=== PATIENT | female | born 1955 | race Caucasian/White ===

== ENCOUNTER 2016-11-21 00:41 | Observation (INO) | payer OTHER ==
[~2016-11-21] VITALS: Ht 167.6 cm; Wt 61.2 kg
--- NOTE | 2016-11-21 00:54 | ED GI/GU/ABDOMINAL COMPLAINT ---
History of Present Illness General Chief Complaint: Abdominal Pain/Flank Pain Stated Complaint: "LOWER ABD PAIN, ?KIDNEY STONE,+N+V-D" Source: patient Exam Limitations: no limitations Vital Signs & Intake/Output Vital Signs & Intake/Output Vital Signs Date Time Temp Pulse Resp B/P B/P Pulse O2 O2 Flow FiO2 Mean Ox Delivery Rate 11/21 0440 97.8 78 20 107/61 97 Room Air 11/21 0210 97.6 83 18 140/76 98 Room Air 11/21 0109 Room Air 11/21 0049 97.5 91 20 137/78 100 Room Air Allergies Coded Allergies: cephalexin (Intermediate, HIVES 11/21/16) Reconcile Medications Amlodipine Besylate/Benazepril (Amlodipine-Benazepril 5-10 MG) 5 MG-10 MG CAPSULE 1 CAP PO DAILY HTN (Reported) Escitalopram Oxalate 10 MG TABLET 1 TAB PO DAILY MOOD (Reported) Triage Note: PT TO TRIAGE FROM HOME C/O SHARP MID ABD PAIN +N/+V/-D THAT BEGAN TONIGHT AND WOKE HER OUT OF SLEEP. DENIES URINARY S/SX BUT HAS HX OF KIDNEY STONES. Triage Nurses Notes Reviewed? yes ? N Is pt currently ? No Onset: Abrupt Duration: hour(s): Timing: recent history Quality/Severity: burning, sharpness Location: epigastric, generalized abdomen Radiation: no radiation Activities at Onset: rest Prior Abdominal Problems: similar symptoms Modifying Factors: Worsens With: vomiting. Associated Symptoms: abdominal pain, nausea/vomiting HPI: 61-year-old woman history of high blood pressure presents with midepigastric central and right sided abdominal pain. She states that it began at approximately 10 PM and was very sharp in nature. She felt nauseous and vomited several times. She is otherwise well without dysuria diarrhea chest pain shortness of breath fevers or dizziness. She is otherwise well and has no other concerns. Past History Travel History Traveled to [place] past 21 day No Medical History Any Pertinent Medical History? see below for history Cardiovascular: hypertension Psychiatric: depression Influenza Vaccine: 02/28/13 Surgical History Surgical History: none Psychosocial History What is your primary language Hebrew Family History Hx Contributory? No Review of Systems Review of Systems Constitutional: Reports: no symptoms. EENTM: Reports: no symptoms. Respiratory: Reports: no symptoms. Cardiovascular: Reports: no symptoms. GI: Reports: no symptoms. Genitourinary: Reports: no symptoms. Musculoskeletal: Reports: no symptoms. Skin: Reports: no symptoms. Neurological/Psychological: Reports: no symptoms. Hematologic/Endocrine: Reports: no symptoms. Immunologic/Allergic: Reports: no symptoms. All Other Systems: Reviewed and Negative Physical Exam Physical Exam General Appearance: well developed/nourished, no apparent distress Head: atraumatic, normal appearance Eyes: Bilateral: normal appearance. Ears, Nose, Throat, Mouth: hearing grossly normal Neck: normal inspection, supple, full range of motion, normal alignment Respiratory: normal breath sounds, chest non-tender, no respiratory distress, quiet respiration, lungs clear Cardiovascular: regular rate/rhythm Gastrointestinal: soft, midepigastric tenderness to palpation. No Deshpande sign. No rebound no guarding. Mild right lower quadrant tenderness. Back: normal inspection Extremities: normal range of motion Neurologic/Psych: no motor/sensory deficits, awake, alert, oriented x 3 Skin: intact, normal color, warm/dry Core Measures ACS in differential dx? No Severe Sepsis Present: No Septic Shock Present: No Progress Differential Diagnosis: appendicitis, cholecystitis, diverticulitis, gastritis, kidney stone Plan of Care: Orders Procedure Date/time Status Place in observation 11/21 0514 Active URINALYSIS 11/21 004 Complete TROPONIN LEVEL 11/21 004 Complete LIPASE 11/21 004 Complete HEPATIC FUNCTION PANEL 11/21 004 Complete CBC WITHOUT DIFFERENTIAL 11/21 44 Complete BASIC METABOLIC PANEL 11/21 004 Complete AMYLASE 11/21 0045 Complete EKG 11/21 0045 Active Laboratory Tests 11/21/16 0130: Urinalysis MOD H, Urine Color STRAW, Urine Clarity CLEAR, Urine pH 8.0, Ur Specific [place] 1.015, Urine Protein NEG, Urine Ketones TRACE H, Urine Nitrite NEG, Urine Bilirubin NEG, Urine Urobilinogen 0.2, Ur Leukocyte Esterase NEG, Ur Microscopic SEDIMENT EXAMINED, Urine RBC 3-5, Urine WBC 1-3 H, Urine Hemoglobin TRACE-INTACT, Urine Glucose NEG 11/21/16 0100: Anion Gap 12, Estimated GFR > 60, BUN/Creatinine Ratio 27.1 H, Glucose 131 H, Calcium 9.7, Total Bilirubin 0.7, Direct Bilirubin 0.2, AST 22, ALT 30, Alkaline Phosphatase 74, Troponin I < 0.01, Total Protein 7.8, Albumin 4.9, Amylase 58, Lipase 89, CBC w Diff MAN DIFF ORDERED, RBC 4.67, MCV 89.9, MCH 30.5, RDW 12.8, MPV 9.7, Gran % 83.8 H, Lymphocytes % 11.2 L, Monocytes % 3.3, Eosinophils % 1.4, Basophils % 0.3, Absolute Granulocytes 14.7 H, Absolute Lymphocytes 2.0, Absolute Monocytes 0.6, Absolute Eosinophils 0.2, Absolute Basophils 0, Platelet Estimate ADEQUATE, Normocytic RBCs VERIFIED, Normochromic RBCs VERIFIED, PUBS MCHC 33.9 Diagnostic Imaging: Viewed by Me: CT Scan. Discussed w/RAD: CT Scan. Radiology Impression: ABD/PELVIC CT... SUSPICIOUS FOR SMALL BOWEL OBSTRUCTION. Initial ED EKG: normal axis, normal intervals, normal p-waves, normal QRS complex, normal sinus rhythm Comments: PATIENT: DAMON TRINH PRESENT AGE: 61 PATIENT ACCOUNT NO: [id number] : 53 LOCATION: [facility] ORDERING PHYSICIAN: NIKHIL ARROYO MD SERVICE DATE: 11/21/16 EXAM TYPE: CAT - CT ABD & PELVIS W/O IV CONTRAS EXAMINATION: CT ABDOMEN AND PELVIS WITHOUT CONTRAST CLINICAL INFORMATION: Mid epigastric and right flank pain COMPARISON: 07/12/2013 TECHNIQUE: Multidetector volumetric imaging was performed from the superior aspect of the liver through the pubic symphysis. Sagittal and coronal reformatted images were obtained on the technologist's workstation. DLP: 290.47 mGy-cm FINDINGS: LUNG BASES: There is subsegmental atelectasis in the right lower lobe. LIVER, GALLBLADDER, AND BILIARY TREE: The liver is normal in size, shape, and attenuation. There is a subcentimeter hypoattenuating lesion in segment 8 of the liver, too small to characterize. No biliary ductal dilatation is present. The gallbladder is unremarkable with no evidence of radiopaque gallstones, gallbladder wall thickening, or obvious pericholecystic inflammatory changes. PANCREAS: Unremarkable. SPLEEN: Unremarkable. ADRENAL GLANDS: There is a 1.3 cm low-density right adrenal nodule which has the density of a lipid rich adenoma. KIDNEYS AND URETERS: There is a 2.6 cm right upper pole renal cyst. There are multiple scattered bilateral renal calculi measuring up to approximately 6 mm. No hydronephrosis or ureteral calculi bilaterally. BLADDER: Unremarkable. GASTROINTESTINAL TRACT: There are multiple loops of mildly prominent fluid-filled small bowel in the abdomen, with a transition to collapsed bowel seen in the anterior pelvis (axial image 67/96, coronal image 30) which is suspicious for a small bowel obstruction. Distal small bowel loops appear collapsed. There is prominent submucosal fat in the proximal ascending colon, suggesting sequelae of prior inflammation. The colon otherwise appears unremarkable. The appendix is unremarkable. ABDOMINAL WALL: No significant hernia is appreciated. LYMPH NODES: Normal. VASCULAR: Scattered atherosclerotic calcifications are present. PELVIC VISCERA: Unremarkable. OSSEOUS STRUCTURES: There is facet arthropathy of the lower lumbar spine. IMPRESSION: 1. Multiple mildly prominent fluid-filled loops of small bowel in the abdomen, with transition to collapsed bowel in the anterior pelvis. Overall pattern is suspicious for a small bowel obstruction. 2. Numerous scattered bilateral renal calculi, without hydronephrosis. DICTATED BY: YOCASTA HAMMER MD DATE/TIME DICTATED:11/21/16318 SUPPLY REQUIREMENTS OFFICER:FAZAL DATE/TIME TRANSCRIBED:11/21/16318 CONFIDENTIAL, DO NOT COPY WITHOUT APPROPRIATE AUTHORIZATION. <Electronically signed in Other Vendor System> SIGNED BY: YOCASTA HAMMER MD 11/21/16 0333 Departure Departure Disposition: HOME OR SELF CARE Condition: Stable Clinical Impression Primary Impression: Abdominal pain Secondary Impressions: Small bowel obstruction Referrals: NGA MADDEN,SHAWANDA Ramirez (PCP/Family) Departure Forms: Customer Survey General Discharge Information Observation Note Spoke With: JOB MADDEN,BRITT N. Physician Advisor Notified: NICOLE AMBRIZ DO Place Patient In: Non-ED OBS Care Area Rationale for Observation: My rational for observation is as follows . pt with small bowel obstruction, benign labs, felling better after iv fluids...pt will beneifit from supportive medications and bowel rest.
--- NOTE | 2016-11-21 01:05 | NUR ---
MEDICATED WITH TORADOL AND ZOFRAN PER EMAR. 1ST LITER NS INFUSING AT THIS TIME.
[2016-11-21 01:08] LABS: ABSOLUTE BASOPHIL COUNT 0 /CUMM (0.0-0.2); ABSOLUTE EOSINOPHIL COUNT 0.2 /CUMM (0.0-0.7); ABSOLUTE GRANULOCYTE CT 14.7 /CUMM (1.4-6.5); ABSOLUTE MONOCYTE COUNT 0.6 /CUMM (0.10-0.60); BASOPHIL % 0.3 % (0.0-2.0); EOSINOPHIL % 1.4 % (0-5); MEAN CORPUSCULAR HGB 30.5 PG (27.0-31.0); MEAN CORPUSCULAR HGB CONC 33.9 G/DL (33.0-37.0); MEAN CORPUSCULAR VOLUME 89.9 FL (81.0-99.0); MEAN PLATELET VOLUME 9.7 FL (7.4-10.4); PLATELET COUNT 256 /CUMM (130-400); RBC DISTRIBUTION WIDTH 12.8 % (11.5-14.5); RED BLOOD CELL CT 4.67 /CUMM (4.20-5.40); WHITE BLOOD CELL COUNT 17.5 /CUMM (4.8-10.8)
[2016-11-21 01:19] LABS: GRANULOCYTE % 83.8 % (42.2-75.2)
--- NOTE | 2016-11-21 01:20 | NUR ---
PT NOW RESTING MORE COMFORTABLY ON STRETCHER. AWARE OF NEED FOR URINE SAMPLE. AWAITING RESULTS OF LABS.
--- NOTE | 2016-11-21 01:24 | NUR ---
MD ARROYO AT BEDSIDE TO IVAN AT THIS TIME
--- NOTE | 2016-11-21 01:41 | NUR ---
PT MEDICATED WITH PEPCID AND GI COCKTAIL PER EMAR. TOLERATED WELL. URINE TRIO SENT BY MARIAM CANO.
--- NOTE | 2016-11-21 02:02 | NUR ---
TO CAT SCAN VIA STRETCHER AT THIS TIME
--- NOTE | 2016-11-21 02:10 | NUR ---
PT BACK FROM CAT SCAN
--- NOTE | 2016-11-21 03:33 | CT SCAN REPORT ---
EXAMINATION: CT ABDOMEN AND PELVIS WITHOUT CONTRAST CLINICAL INFORMATION: Mid epigastric and right flank pain COMPARISON: 07/12/2013 TECHNIQUE: Multidetector volumetric imaging was performed from the superior aspect of the liver through the pubic symphysis. Sagittal and coronal reformatted images were obtained on the technologist's workstation. DLP: 290.47 mGy-cm FINDINGS: LUNG BASES: There is subsegmental atelectasis in the right lower lobe. LIVER, GALLBLADDER, AND BILIARY TREE: The liver is normal in size, shape, and attenuation. There is a subcentimeter hypoattenuating lesion in segment 8 of the liver, too small to characterize. No biliary ductal dilatation is present. The gallbladder is unremarkable with no evidence of radiopaque gallstones, gallbladder wall thickening, or obvious pericholecystic inflammatory changes. PANCREAS: Unremarkable. SPLEEN: Unremarkable. ADRENAL GLANDS: There is a 1.3 cm low-density right adrenal nodule which has the density of a lipid rich adenoma. KIDNEYS AND URETERS: There is a 2.6 cm right upper pole renal cyst. There are multiple scattered bilateral renal calculi measuring up to approximately 6 mm. No hydronephrosis or ureteral calculi bilaterally. BLADDER: Unremarkable. GASTROINTESTINAL TRACT: There are multiple loops of mildly prominent fluid-filled small bowel in the abdomen, with a transition to collapsed bowel seen in the anterior pelvis (axial image 67/96, coronal image 30) which is suspicious for a small bowel obstruction. Distal small bowel loops appear collapsed. There is prominent submucosal fat in the proximal ascending colon, suggesting sequelae of prior inflammation. The colon otherwise appears unremarkable. The appendix is unremarkable. ABDOMINAL WALL: No significant hernia is appreciated. LYMPH NODES: Normal. VASCULAR: Scattered atherosclerotic calcifications are present. PELVIC VISCERA: Unremarkable. OSSEOUS STRUCTURES: There is facet arthropathy of the lower lumbar spine. IMPRESSION: 1. Multiple mildly prominent fluid-filled loops of small bowel in the abdomen, with transition to collapsed bowel in the anterior pelvis. Overall pattern is suspicious for a small bowel obstruction. 2. Numerous scattered bilateral renal calculi, without hydronephrosis.
--- NOTE | 2016-11-21 03:40 | NUR ---
AT BEDSIDE TO REEVAL AND UPDATE PT
[2016-11-21] MEDS ORDERED: AMLODIPINE-BEN1 EAC3 PO (03:45)
[2016-11-21] MEDS ORDERED: ESCITALOPRAM OX10 MG PO (03:45)
--- NOTE | 2016-11-21 04:46 | NUR ---
SURGICAL PA HERE TO EVAL PT
--- NOTE | 2016-11-21 05:22 | Admission Core Measures ---
Admission Lab Results I reviewed the following labs: Laboratory Tests 11/21 11/21 0130 0100 Chemistry Sodium (137 - 145 mmol/L) 143 Potassium (3.5 - 5.1 mmol/L) 3.6 Chloride (98 - 107 mmol/L) 102 Carbon Dioxide (22 - 30 mmol/L) 28 Anion Gap (5 - 16) 12 BUN (7 - 17 mg/dL) 19 H Creatinine (0.5 - 1.0 mg/dL) 0.7 Estimated GFR (>60 ml/min) > 60 BUN/Creatinine Ratio (7 - 25 %) 27.1 H Glucose (65 - 99 mg/dL) 131 H Calcium (8.4 - 10.2 mg/dL) 9.7 Total Bilirubin (0.2 - 1.3 mg/dL) 0.7 Direct Bilirubin (< 0.4 mg/dL) 0.2 AST (14 - 36 U/L) 22 ALT (9 - 52 U/L) 30 Alkaline Phosphatase (<127 U/L) 74 Troponin I (< 0.11 ng/ml) < 0.01 Total Protein (6.3 - 8.2 g/dL) 7.8 Albumin (3.5 - 5.0 g/dL) 4.9 Amylase (30 - 110 U/L) 58 Lipase (23 - 300 U/L) 89 Hematology CBC w Diff MAN DIFF ORDERED WBC (4.8 - 10.8 /CUMM) 17.5 H RBC (4.20 - 5.40 /CUMM) 4.67 Hgb (12.0 - 16.0 G/DL) 14.3 Hct (37 - 47 %) 42.0 MCV (81.0 - 99.0 FL) 89.9 MCH (27.0 - 31.0 PG) 30.5 RDW (11.5 - 14.5 %) 12.8 Plt Count (130 - 400 /CUMM) 256 MPV (7.4 - 10.4 FL) 9.7 Gran % (42.2 - 75.2 %) 83.8 H Lymphocytes % (20.5 - 51.1 %) 11.2 L Monocytes % (1.7 - 9.3 %) 3.3 Eosinophils % (0 - 5 %) 1.4 Basophils % (0.0 - 2.0 %) 0.3 Absolute Granulocytes (1.4 - 6.5 /CUMM) 14.7 H Absolute Lymphocytes (1.2 - 3.4 /CUMM) 2.0 Absolute Monocytes (0.10 - 0.60 /CUMM) 0.6 Absolute Eosinophils (0.0 - 0.7 /CUMM) 0.2 Absolute Basophils (0.0 - 0.2 /CUMM) 0 Platelet Estimate (ADEQUATE) ADEQUATE Normocytic RBCs VERIFIED Normochromic RBCs VERIFIED PUBS MCHC (33.0 - 37.0 G/DL) 33.9 Urines Urinalysis MOD H Urine Color (YEL,AMB,STR) STRAW Urine Clarity (CLEAR) CLEAR Urine pH (5.0 - 8.0) 8.0 Ur Specific [place] (1.001 - 1.035) 1.015 Urine Protein (NEG,<30 MG/DL) NEG Urine Ketones (NEG) TRACE H Urine Nitrite (NEG) NEG Urine Bilirubin (NEG) NEG Urine Urobilinogen (0.1 - 1.0 EU/dl) 0.2 Ur Leukocyte Esterase (NEG) NEG Ur Microscopic SEDIMENT EXAMINED Urine RBC (0 - 5 /HPF) 3-5 Urine WBC (0 - 2 /HPF) 1-3 H Urine Hemoglobin (NEG) TRACE-INTACT Urine Glucose (N MG/DL) NEG Admission Meds I reviewed the following Meds: Current Medications Sig/Mulu Start time Last Medication Dose Stop Time Status Admin Acetaminophen 1,000 MG Q6P PRN 11/21 0530 UNVr (Ofirmev) N/A 1 UNIT (No Carrier) Amlodipine Besylate 5 MG DAILY 11/21 1000 UNVr (Norvasc) Escitalopram Oxalate 10 MG DAILY 11/21 1000 UNVr (Lexapro) Famotidine 20 MG BID 11/21 1000 UNVr (Pepcid) Morphine Sulfate 2 MG Q4P PRN 11/21 0530 UNVr (Morphine) Ondansetron HCl 4 MG Q6P PRN 11/21 0530 UNVr (Zofran) Potassium Chloride 20 MEQ Q8H 11/21 0530 UNVr (KCl 20MEQ in D5W 1/ 2NS 1000ML) Dextrose/Sodium 1,000 ML Chloride (D5W-1/2 Normal Saline 1000ML) Acute Coronary Syndrome Inclusion Criteria ACS Diagnosis No Inpatient Core Measures LDL Reminder: If No, please order W/I first 24hr of stay Congestive Heart Failure Inclusion Criteria CHF Diagnosis No Cerebrovascular accident Inclusion Criteria CVA/TIA Diagnosis No Inpatient Core Measures Bedside Swallow Eval Reminder: If BSE failed, place ST order Antithrombotic Reminder: Order Antithrombotic Medication by end of day 2 Antithrombotic Reminder: Document Reason Antithrombotic Not ordered by end of day 2 AFIB/Flutter Reminder: If Present, add to problem list AFIB/Flutter Reminder: Order Anticoag Medication for pts with AFIB/Flutter Atherosclerosis Reminder: If Present, add to problem list LDL Reminder: If No, please order W/I first 24hr of stay PT Order Reminder: If No, please order Venous thromboembolism Inpatient Core Measures VTE Risk Factors: Acute medical illness, Age > 40 No [facility] VTE prophylaxis d/t No contraindications No VTE Pharm Prophylaxis d/t VTE low risk Inclusion Criteria - Per Current guidelines, there needs to be overlap - treatment for the first 5 days of Warfarin therapy. - Parenteral Anticoagulation (IV or SC) needs to be - given along with Warfarin therapy. VTE Diagnosis No VTE Type NONE VTE Confirmed by (Test) NONE Problem List As ranked by this Provider includes Assessment & Plan 1. Abdominal pain 2. Small bowel obstruction HOME MEDS Home Med List Amlodipine Besylate/Benazepril (Amlodipine-Benazepril 5-10 MG) 5 MG-10 MG CAPSULE 1 CAP PO DAILY HTN (Reported) Escitalopram Oxalate 10 MG TABLET 1 TAB PO DAILY MOOD (Reported)
--- NOTE | 2016-11-21 05:32 | Event Note ---
See Addendum Event Note Event Note: Pt is a 61 yo F with a hx of htn, depression, and no previous abdominal surgeries, who presented to the ED last night with c/o periumbilical and epigastric abdominal pain, extending into the RUQ. She states that she ate pizza , meatball sub, and peanuts over at a friend's house and came home around 9pm feeling a little uncomfortable. She had a BM around that time, which was normal in caliber. The pain became progressively worse and would come and go frequently. Onset of pain was followed by nausea and several episodes of emesis, prompting visit to the ED. Pt describes the pain as being similar to when she had kidney stone, "but in a different area." She has otherwise never had pain like this before. Workup in the ED revealed leukocytosis and CT evidence of distended loops of bowel followed by collapsed bowel, which was suspicious for possible sbo. At this time, pt's symptoms have resolved. There is no more pain or nausea. She feels thirsty, but doesn't have an appetite. No flatus or BM since onset of symptoms. Abdominal exam: Soft, non distended. Nontender, except for mild tenderness with very deep palpation of the RUQ. Negative Deshpande's sign. Hypoactive BS are heard. Multiple abdominal striae are appreciated, but no surgical scars. No hernias or masses appreciated. Plan: I spoke with Dr. Che. Pt's pain mimics biliary colic, but she has no evidence of gallstones on CT and there is questionable sbo. She has never had abdominal surgery and is clinically improving. But since she has not passed gas and has no appetite, we will admit for observation, bowel rest, and hydration. Full H&P to follow when seen by Dr. Taveras. Consider repeat MV x-ray of the abdomen or abdominal US for gallbladder workup if she does not improve 100%. I spoke with the patient and her , who are in agreement. I anticipate she will continue to improve.
--- NOTE | 2016-11-21 05:35 | NUR ---
IV FLUIDS RUNNING (KCL 20MEQ IN D5W 1/2NS) AT 125 MLS/HR PER EMAR PT DENIES ANY PAIN OR NAUSEA AT THIS TIME AWAITING OBS ADMISSION
--- NOTE | 2016-11-21 06:12 | NUR ---
PT'S RM ASSIGNMENT 209 BED 2
[2016-11-21 07:16] VITALS: BP 120/72
--- NOTE | 2016-11-21 13:26 | Patient Discharge Instructions ---
Discharge Instructions General Discharge Information You were seen/treated for: abdominal pain / nausea / vomiting, likely gastroenteritis rule out small bowel obstruction You had these procedures: bowel rest Watch for these problems: fever>101.3, increased pain, recurrent nausea/vomiting Diet Continue normal diet: No Recommended Diet: Regular Activity Full Activity/No Limits: Yes Activity Self Limited: Yes Acute Coronary Syndrome Inclusion Criteria At DC or during hospital stay patient has or had the following: ACS DIAGNOSIS No Discharge Core Measures Meds if any: Prescribed or Continued at Discharge Meds if any: NOT Prescribed or Continued at Discharge Congestive Heart Failure Inclusion Criteria At DC or during hospital stay patient has or had the following: CHF DIAGNOSIS No Discharge Core Measures Meds if any: Prescribed or Continued at Discharge Meds if any: NOT Prescribed or Continued at Discharge Cerebrovascular accident Inclusion Criteria At DC or during hospital stay patient has or had the following: CVA/TIA Diagnosis No Discharge Core Measures Meds if any: Prescribed or Continued at Discharge Meds if any: NOT Prescribed or Continued at Discharge Venous thromboembolism Inclusion Criteria VTE Diagnosis No VTE Type NONE VTE Confirmed by (Test) NONE Discharge Core Measures - Per Current guidelines, there needs to be overlap - treatment for the first 5 days of Warfarin therapy. - If discharged on Warfarin prior to 5 days of - overlap therapy, the patient will need to be - assessed for post discharge needs including - *Post discharge parental anticoagulation - *Warfarin and/or parental anticoagulation education - *Follow up date to check INR post discharge At least 5 days overlap therapy as Inpatient No Meds if any: Prescribed or Continued at Discharge Note: Overlap Therapy is Warfarin and Anticoagulant Meds if any: NOT Prescribed or Continued at Discharge
[2016-11-21 15:04] VITALS: BP 140/80
--- NOTE | 2016-11-21 15:06 | NUR ---
NURSING NOTE: PATIENT LEFT FLOOR VIA STRETCHER WITH DISTRIBUTION FOR XRAY. A/OX3, STEADY GAIT DENIES PAIN AT THIS TIME. NO ACUTE DISTRESS NOTED. WILL AWAIT RETURN.
--- NOTE | 2016-11-21 15:24 | NUR ---
NURSIGN NOTE: PATIENT RETURNED TO FLOOR. NO ACUTE CHANGES NOTED. REPORT GIVENT TO ON COMING RN.
--- NOTE | 2016-11-21 15:44 | RADIOLOGY REPORT ---
EXAMINATION: XR ABDOMEN CLINICAL INDICATION: Resolved abdominal pain, nausea and vomiting. Evaluate for a bowel obstruction. COMPARISON: Multiple priors, most recent CT abdomen/pelvis done earlier the same day. TECHNIQUE: Upright and supine AP views of the abdomen were obtained. FINDINGS: Nonobstructive bowel gas pattern with air and stool throughout the colon. No intra-abdominal free air. No abnormal soft tissue calcification. Degenerative changes within the lower lumbar spine and symphysis pubis. IMPRESSION: Nonobstructive bowel gas pattern.
--- NOTE | 2016-11-21 16:59 | History & Physical Pre-Op ---
General Information and HPI Exam Limitations: no limitations History of Present Illness: CC: abdominal pain HPI: 61-year-old nondiabetic nonsmoker came to the ER last night with severe abdominal pain she's not had prior abdominal surgery she hasn't had pain like this before she indicates that it was across the middle lower abdomen both sides didn't radiate it was constant at first and then dissipated once she came to the emergency room the reason she came in was because of the associated vomiting multiple times. She describes the severity similar to that when she had kidney stones just a different location. 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 Before the pain started she had a bowel movement, none since but overnight since being admitted she has passed gas a few times. She does not normally move her bowels every day. Otherwise no changes bowel habits, weight or appetite. I've reviewed the [facility]. No history of GERD, PUD, bleeding problems, heart disease or issues with anesthesia. Family history reviewed reviewed there is a family history of breast cancer Allergies/Medications Allergies: Coded Allergies: cephalexin (Intermediate, HIVES 11/21/16) Home Med list Amlodipine Besylate/Benazepril (Amlodipine-Benazepril 5-10 MG) 5 MG-10 MG CAPSULE 1 CAP PO DAILY HTN (Reported) Escitalopram Oxalate 10 MG TABLET 1 TAB PO DAILY MOOD (Reported) Past History Medical History Neurological: NONE EENT: NONE Cardiovascular: hypertension Respiratory: NONE Gastrointestinal: NONE Hepatic: NONE Renal: nephrolithiasis Musculoskeletal: NONE Psychiatric: depression Endocrine: NONE Blood Disorders: NONE Cancer(s): NONE 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 History of MRSA: No History of VRE: No History of CDIFF: No Isolation History: Standard Influenza Vaccine: 02/28/13 Surgical History Pertinent Surgical History: none Past Family/Social History Psychosocial History Smoking Status: Never Smoked ETOH Use: denies use Review of Systems Review of Systems: Constitutional: No fever, sweats or weight loss ENMT: No sore throat Cardiovascular: No chest pain, palpitations or leg swelling Respiratory: No shortness of breath, cough, or sputum or dyspnea on exertion GI: No GERD or bleeding per rectum : No dysuria or hematuria Musculoskeletal: No new muscle weakness, bone or joint pain Skin / Breast: No jaundice, rashes or itching Psychiatric: No history of drug or alcohol abuse no depression or anxiety Hematologic / lymphatic system: No problems with excessive bleeding, bruising, or blood clots Exam & Diagnostic Data Last 24 Hrs of Vital Signs/I&O I reviewed Vital Signs Date Time Temp Pulse Resp B/P B/P Pulse O2 O2 Flow FiO2 Mean Ox Delivery Rate 11/21 1504 98.2 89 20 140/80 96 Room Air 11/21 0716 98.2 67 20 120/72 97 11/21 0440 97.8 78 20 107/61 97 Room Air 11/21 0210 97.6 83 18 140/76 98 Room Air 11/21 0109 Room Air 11/21 0049 97.5 91 20 137/78 100 Room Air I reviewed Intake & Output 11/21 1600 11/21 0800 11/21 0000 Intake Total 875 1000 Output Total Balance 875 1000 Intake, IV 875 1000 Patient 135 lb Weight Weight Reported by Patient Measurement Method Physical Exam: Constitutional: pleasant, no acute distress, conversant Eyes: sclera anicteric ENMT: ears and nose atraumatic, moist mucous membranes, good dentition, no lip lesions Neck: Supple, trachea is midline, no cervical or supraclavicular adenopathy and no palpable thyromegaly Cardiovascular: S1, S2, no murmurs, no peripheral edema Respiratory: clear to auscultation with normal respiratory effort and no intercostal retractions GI: abdomen soft, nontender, nondistended, no palpable hepatosplenomegaly Extremities / lymphatics: symmetrically warm, free range of motion no peripheral edema, no cervical, supraclavicular, axillary, or inguinal adenopathy Musculoskeletal: Did not evaluate gait and station, no digital cyanosis, good muscle strength and tone no atrophy, motor grossly 5 out of 5 throughout Skin: no jaundice, no rashes warm, nondiaphoretic, no areas of erythema or induration Psychiatric: mood and affect are appropriate and alert and oriented to person place and time Last 24 Hrs of Labs/Boo: I reviewed Laboratory Tests 11/21/16 0130: Urinalysis MOD H, Urine Color STRAW, Urine Clarity CLEAR, Urine pH 8.0, Ur Specific [place] 1.015, Urine Protein NEG, Urine Ketones TRACE H, Urine Nitrite NEG, Urine Bilirubin NEG, Urine Urobilinogen 0.2, Ur Leukocyte Esterase NEG, Ur Microscopic SEDIMENT EXAMINED, Urine RBC 3-5, Urine WBC 1-3 H, Urine Hemoglobin TRACE-INTACT, Urine Glucose NEG 11/21/16 0100: Anion Gap 12, Estimated GFR > 60, BUN/Creatinine Ratio 27.1 H, Glucose 131 H, Calcium 9.7, Total Bilirubin 0.7, Direct Bilirubin 0.2, AST 22, ALT 30, Alkaline Phosphatase 74, Troponin I < 0.01, Total Protein 7.8, Albumin 4.9, Amylase 58, Lipase 89, CBC w Diff MAN DIFF ORDERED, RBC 4.67, MCV 89.9, MCH 30.5, RDW 12.8, MPV 9.7, Gran % 83.8 H, Lymphocytes % 11.2 L, Monocytes % 3.3, Eosinophils % 1.4, Basophils % 0.3, Absolute Granulocytes 14.7 H, Absolute Lymphocytes 2.0, Absolute Monocytes 0.6, Absolute Eosinophils 0.2, Absolute Basophils 0, Platelet Estimate ADEQUATE, Normocytic RBCs VERIFIED, Normochromic RBCs VERIFIED, PUBS MCHC 33.9 Assessment/Plan Assessment/Plan: Studies: I reviewed the CT scan on PACS myself and also compared it to the recent KUB on the initial film there are a few dilated loops of small bowel the follow-up film shows a more diffuse pattern with more gas in the colon. Impression is small bowel obstruction presumably from an unusual meal which seems to be resolving already. Often a large portion of nuts is the culprit. I explained to her that maybe was a recent change in her physical routine plus the medial that caused this and compared it to other causes not likely in her such as postop adhesions or possibly a tumor in which case usually don't improve so quickly but even so she is to watch for recurrent symptoms. At this point we can give her some oral intake and discharge her home even without a bowel movement because her exam is improved as has the imaging and she is passing gas and no longer nauseous. Sometimes patients with this scenario though do not improve and even need an NG tube so I cautioned her to be careful advancing diet on her own gradually. As Ranked By This Provider Problem List: 1. Small bowel obstruction
== END 2016-11-21 16:40 ==
LOC: ERH 00:41 → ERHI 05:14 → ENRESERV 06:09 → 2NB 06:23 → ENPENDDIS 16:15 → 2NB 16:40
PROVIDERS: Pediatrics; ADMIT Surgery
DX: K56.60 Unspecified intestinal obstruction (principal); I10 Essential (primary) hypertension; F32.9 Major depressive disorder, single episode, unspecified; D72.829 Elevated white blood cell count, unspecified
CPT/HCPCS: 6040; 74020; 74176; 81001; 93005; 93010; 96361; 96374; 96375; 96376; G0378; J0131; J1885; J2405; J7042

== ENCOUNTER 2017-09-03 07:04 | Emergency (ER) | payer OTHER ==
[~2017-09-03] VITALS: Ht 160 cm; Wt 59.0 kg
[~2017-09-03 07:04] MED LIST: AMLODIPINE-BEN1 EAC3 PO; ESCITALOPRAM OX10 MG PO
--- NOTE | 2017-09-03 07:56 | ED GI/GU/ABDOMINAL COMPLAINT ---
History of Present Illness General Chief Complaint: Abdominal Pain/Flank Pain Stated Complaint: ABDOMINAL PAIN,KIDNEY STONES Source: patient Exam Limitations: no limitations Vital Signs & Intake/Output Vital Signs & Intake/Output Vital Signs Date Time Temp Pulse Resp B/P B/P Pulse O2 O2 Flow FiO2 Mean Ox Delivery Rate 09/03 0744 98 Room Air 09/04 711 97.3 84 20 136/82 94 Room Air Allergies Coded Allergies: cephalexin (Intermediate, HIVES 11/21/16) Reconcile Medications Amlodipine Besylate/Benazepril (Amlodipine-Benazepril 5-10 MG) 5 MG-10 MG CAPSULE 1 CAP PO DAILY HTN (Reported) Escitalopram Oxalate 10 MG TABLET 1 TAB PO DAILY MOOD (Reported) Triage Note: PT TO ED S/P SUDDEN ONSET OF R SIDED ABD PAIN WRAPPING TO R BACK. HX KIDNEY STONES IN PAST. 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 8/10 PAIN. DENIES HEMATURIA. AWAKE/ALERT WITH EASY WOB. DECLINED PAIN MEDS Triage Nurses Notes Reviewed? yes ? n Is pt currently ? No HPI: Patient presents for evaluation of right flank pain she suspects is due to a kidney stone. Patient states that she has had multiple kidney stones in the past along with lithotripsy treatments. She states initially she felt a pressure feeling "like glass" in the suprapubic region during urination on Wednesday. That seemed to resolve but then this morning at about 5:30 she had an abrupt onset of a right flank pain and subsequent vomiting. This pain is a constant 7/10 pain that fluctuates in intensity. Nothing seems to make it better although the patient has not tried any haby-sub-fmhwrrt pain medications. She denies any associated fever or cold symptoms. Past History Travel History Traveled to [place] past 21 day No Medical History Any Pertinent Medical History? 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 No Review of Systems Review of Systems Constitutional: Reports: no symptoms. EENTM: Reports: no symptoms. Respiratory: Reports: no symptoms. Cardiovascular: Reports: no symptoms. GI: Reports: no symptoms. Genitourinary: Reports: see HPI. Musculoskeletal: Reports: no symptoms. Skin: Reports: no symptoms. Neurological/Psychological: Reports: no symptoms. Hematologic/Endocrine: Reports: no symptoms. Immunologic/Allergic: Reports: no symptoms. All Other Systems: Reviewed and Negative Physical Exam Physical Exam Gastrointestinal: see below Comments: Gen.: Well-nourished, well-developed, no acute respiratory distress. Patient appears comfortable and moves easily on the stretcher. Head: Normocephalic, atraumatic. Eyes: Normal inspection bilaterally Ears: Normal inspection bilaterally Nose: Normal inspection Throat/mouth : Moist mucosa Neck: Supple, full range of motion, no goiter Heart: Regular rate and rhythm, no murmurs rubs or gallops Lungs: Clear to auscultation bilaterally with normal air entry Chest: Nontender Back: Normal range of motion, mild tenderness over the right flank Abdomen: Soft, mild tenderness over the right side of the abdomen without rebound or guarding, nondistended, normal bowel sounds Extremities: Normal range of motion grossly, equal radial pulses, no cyanosis clubbing or edema Neurologic: Cranial nerves grossly intact, speech is clear Skin: warm and dry, no rashes in the area of pain Psychiatric: Calm, cooperative, no apparent delusions or hallucinations Core Measures ACS in differential dx? No Sepsis Present: No Sepsis Focused Exam Completed? No Progress Differential Diagnosis: renal colic, pyelonephritis, UTI, appendicitis, diverticulitis Plan of Care: Orders Procedure Date/time Status LIPASE 09/03 0756 Complete COMPREHENSIVE METABOLIC PANEL 09/03 0756 Complete CBC WITHOUT DIFFERENTIAL 09/03 0756 Complete URINALYSIS 09/03 0727 Complete Laboratory Tests 09/03/17 0808: Anion Gap 13, Estimated GFR > 60, BUN/Creatinine Ratio 18.6, Glucose 108 H, Calcium 9.8, Total Bilirubin 1.1, AST 16, ALT 23, Alkaline Phosphatase 59, Total Protein 7.7, Albumin 4.3, Globulin 3.4, Albumin/Globulin Ratio 1.3, Lipase 58, CBC w Diff MAN DIFF ORDERED, RBC 4.55, MCV 90.4, MCH 30.6, MCHC 33.8, RDW 13.6, MPV 9.6, Gran % 84.3 H, Lymphocytes % 10.8 L, Monocytes % 3.5, Eosinophils % 1.0, Basophils % 0.4, Absolute Granulocytes 8.2 H, Absolute Lymphocytes 1.1 L, Absolute Monocytes 0.3, Absolute Eosinophils 0.1, Absolute Basophils 0, Platelet Estimate ADEQUATE, Normocytic RBCs VERIFIED, Normochromic RBCs VERIFIED 09/03/17 0738: Urinalysis LIGHT H, Urine Color YEL, Urine Clarity HAZY H, Urine pH 6.0, Ur Specific [place] >= 1.030, Urine Protein 30 H, Urine Ketones NEG, Urine Nitrite NEG, Urine Bilirubin NEG, Urine Urobilinogen 0.2, Ur Leukocyte Esterase NEG, Ur Microscopic SEDIMENT EXAMINED, Urine RBC >75 H, Urine WBC 3-5 H, Ur Epithelial Cells FEW, Urine Bacteria FEW H, Urine Mucus FEW, Urine Hemoglobin LARGE H, Urine Glucose NEG Diagnostic Imaging: Discussed w/RAD: CT Scan. Radiology Impression: PATIENT: DAMON TRINH PRESENT AGE: 62 PATIENT ACCOUNT NO: [id number] : 53 LOCATION: [facility] ORDERING PHYSICIAN: Edin Boggs MD SERVICE DATE: 09/03/17 EXAM TYPE: CAT - CT ABD & PELVIS W/O IV CONTRAS EXAMINATION: CT ABDOMEN AND PELVIS WITHOUT CONTRAST CLINICAL INFORMATION: Right flank pain COMPARISON: 11/21/2016 TECHNIQUE : Multidetector volumetric imaging was performed from the superior aspect of the liver through the pubic symphysis. Sagittal and coronal reformatted images were obtained on the technologist's workstation. DLP: 261.92 mGy-cm FINDINGS: LUNG BASES: The visualized lung bases are unremarkable. LIVER, GALLBLADDER, AND BILIARY TREE: The liver is normal in size, shape, and attenuation. There is a redemonstrated hyperattenuating subcentimeter hepatic lesion near the middle hepatic vein, too small to characterize. No biliary ductal dilatation is present. The gallbladder is unremarkable with no evidence of radiopaque gallstones, gallbladder wall thickening, or obvious pericholecystic inflammatory changes. PANCREAS: Unremarkable. SPLEEN: Unremarkable. ADRENAL GLANDS: There is a redemonstrated right adrenal adenoma measuring approximately 1.5 cm. The left adrenal gland appears unremarkable. KIDNEYS AND URETERS: There is a proximal right ureteral calculus measuring 6 mm with moderate hydronephrosis. There are multiple scattered calculi throughout both kidneys measuring up to approximately 5 mm. No left-sided hydronephrosis or ureteral calculus. There is a redemonstrated right upper pole renal cyst. BLADDER: Unremarkable. GASTROINTESTINAL TRACT: Assessment for wall thickening in some segments of the colon is limited due to luminal collapse, though no significant pericolonic stranding is seen to strongly suggest a colitis. No evidence of bowel obstruction. The appendix is unremarkable. No free fluid or free air is seen. ABDOMINAL WALL: No significant hernia is appreciated. LYMPH NODES: Normal. VASCULAR: Scattered atherosclerotic calcifications are present. PELVIC VISCERA: Unremarkable. OSSEOUS STRUCTURES: There is facet arthropathy in the lower lumbar spine. IMPRESSION: 1. Proximal right ureteral calculus measuring 6 mm with moderate hydronephrosis. 2. Multiple scattered calculi throughout both kidneys. DICTATED BY: Aki Montano MD DATE/TIME DICTATED:09/03/17901 REGIONAL AGRONOMIST:FAZAL DATE/TIME TRANSCRIBED:09/03/17901 CONFIDENTIAL, DO NOT COPY WITHOUT APPROPRIATE AUTHORIZATION. <Electronically signed in Other Vendor System> SIGNED BY: Aki Montano MD 09/03/17 0915 Initial ED EKG: none Comments: 09/03/2017 10:44:03 AM I have updated Cheryl on her test results and she was not surprised she had a kidney stone. I've discussed her case with Dr. Alexander who feels that so long as the patient's symptoms are under control she can follow-up in his office. Departure Departure Disposition: HOME OR SELF CARE Condition: Stable Clinical Impression Primary Impression: Renal colic on right side Referrals: Catherine MADDEN,Claudio Johnson MD,Arnol Ramirez (PCP/Family) Additional Instructions: Zofran as needed for nausea or vomiting, [place] as needed for pain. Follow-up with Dr. Alexander today and arrange for a follow-up appointment on Wednesday or Wednesday. Return if any concerns or sudden worsening. Please note that there might be incidental findings in your evaluation that are unrelated to the current emergency department visit. Please notify your primary care doctor about this emergency department visit in order to obtain and review all of the testing performed so that these incidental findings can be monitored as needed. If you had an x-ray performed, please understand that some fractures may not be seen on the initial set of x-rays. If your symptoms persist you might need a repeat set of x-rays to check for such a fracture. If you had a laceration evaluated, please understand that foreign bodies such as glass or wood may not be visible to the naked eye or on plain x-rays. If the wound becomes red, swollen, increasingly more painful or if there is any drainage from the wound, please have it reevaluated by a physician for the possibility of a retained foreign body. If you're unable to follow up as outlined in the discharge instructions please return to the emergency department. Thank you for choosing the [facility] Emergency Department for your care. It was a pleasure to serve you today. Edin Boggs M.D. [facility] Departure Forms: Customer Survey General Discharge Information Prescriptions: Current Visit Scripts Ondansetron (Zofran Odt) 1 TAB SL Q6P PRN nausea/vomiting #12 TAB Hydrocodone/Acetaminophen ([place] 5-325 Tablet) 1-2 TAB PO Q6 #20 TAB Critical Care Note Critical Care Note Critical Care Time: 30-74 min
[2017-09-03 08:18] LABS: ABSOLUTE BASOPHIL COUNT 0 /CUMM (0.0-0.2); ABSOLUTE EOSINOPHIL COUNT 0.1 /CUMM (0.0-0.7); ABSOLUTE GRANULOCYTE CT 8.2 /CUMM (1.4-6.5); ABSOLUTE LYMPH COUNT 1.1 /CUMM (1.2-3.4); ABSOLUTE MONOCYTE COUNT 0.3 /CUMM (0.10-0.60); BASOPHIL % 0.4 % (0.0-2.0); GRANULOCYTE % 84.3 % (42.2-75.2); HEMATOCRIT 41.1 % (37-47); MEAN CORPUSCULAR HGB 30.6 PG (27.0-31.0); MEAN CORPUSCULAR HGB CONC 33.8 G/DL (33.0-37.0); MEAN CORPUSCULAR VOLUME 90.4 FL (81.0-99.0); MEAN PLATELET VOLUME 9.6 FL (7.4-10.4); PLATELET COUNT 245 /CUMM (130-400); RBC DISTRIBUTION WIDTH 13.6 % (11.5-14.5); RED BLOOD CELL CT 4.55 /CUMM (4.20-5.40); WHITE BLOOD CELL COUNT 9.8 /CUMM (4.8-10.8)
--- NOTE | 2017-09-03 09:15 | CT SCAN REPORT ---
EXAMINATION: CT ABDOMEN AND PELVIS WITHOUT CONTRAST CLINICAL INFORMATION: Right flank pain COMPARISON: 11/21/2016 TECHNIQUE: Multidetector volumetric imaging was performed from the superior aspect of the liver through the pubic symphysis. Sagittal and coronal reformatted images were obtained on the technologist's workstation. DLP: 261.92 mGy-cm FINDINGS: LUNG BASES: The visualized lung bases are unremarkable. LIVER, GALLBLADDER, AND BILIARY TREE: The liver is normal in size, shape, and attenuation. There is a redemonstrated hyperattenuating subcentimeter hepatic lesion near the middle hepatic vein, too small to characterize. No biliary ductal dilatation is present. The gallbladder is unremarkable with no evidence of radiopaque gallstones, gallbladder wall thickening, or obvious pericholecystic inflammatory changes. PANCREAS: Unremarkable. SPLEEN: Unremarkable. ADRENAL GLANDS: There is a redemonstrated right adrenal adenoma measuring approximately 1.5 cm. The left adrenal gland appears unremarkable. KIDNEYS AND URETERS: There is a proximal right ureteral calculus measuring 6 mm with moderate hydronephrosis. There are multiple scattered calculi throughout both kidneys measuring up to approximately 5 mm. No left-sided hydronephrosis or ureteral calculus. There is a redemonstrated right upper pole renal cyst. BLADDER: Unremarkable. GASTROINTESTINAL TRACT: Assessment for wall thickening in some segments of the colon is limited due to luminal collapse, though no significant pericolonic stranding is seen to strongly suggest a colitis. No evidence of bowel obstruction. The appendix is unremarkable. No free fluid or free air is seen. ABDOMINAL WALL: No significant hernia is appreciated. LYMPH NODES: Normal. VASCULAR: Scattered atherosclerotic calcifications are present. PELVIC VISCERA: Unremarkable. OSSEOUS STRUCTURES: There is facet arthropathy in the lower lumbar spine. IMPRESSION: 1. Proximal right ureteral calculus measuring 6 mm with moderate hydronephrosis. 2. Multiple scattered calculi throughout both kidneys.
[2017-09-03] MEDS ORDERED: ZOFRAN ODT4 M1 SL (10:55)
[2017-09-03] MEDS ORDERED: NORCO 5-325 TA1 EACH PO (10:55)
[2017-09-03 11:30] VITALS: BP 128/70
== END 2017-09-03 11:38 ==
LOC: ERH 07:04
PROVIDERS: Emergency Medicine
DX: N23 Unspecified renal colic (principal)
CPT/HCPCS: 74176; 81001; 96374; 96375; J1885; J2405